=== PATIENT | male | born 1975 | race African-American/Black ===

== ENCOUNTER 2018-07-23 12:47 | Observation (INO) ==
[2018-07-23 15:23] LABS: Basophils % 0.2 % (0.0-0.8); Eosinophils # 4.2 10*3/uL (0.0-0.87); Eosinophils % 33.2 % (0.00-10.9); Hemoglobin 11.6 GM/DL (14.0-18.0); Immature Granulocytes % 0.9 %; Immature Granulocytes Absolute 0.11 #; Lymphocytes # 0.9 10*3/uL (1.4-4.0); Lymphocytes % 7.1 % (21.2-54.2); Mean Corpuscular HGB Conc 30.5 GM/DL (32-36); Mean Corpuscular Volume 90.3 FL (87-102); Mean Platelet Volume 10.4 FL (9.6-12.0); Monocytes % 7.8 % (1.7-12.7); Neutrophils % 50.8 % (38.7-73.9); Platelet Count 208 T/CUMM (130-400); Red Blood Count 4.21 MC/CUMM (3.8-5.5); Red Cell Distribution Width 13.4 % (9.3-17.3); White Blood Count 12.5 T/CUMM (4-12)
[2018-07-23 15:46] LABS: Albumin 3.5 G/DL (3.4-5.0); Bilirubin,Total 0.5 MG/DL (0.2-1.0); Calcium 10.3 MG/DL (8.5-10.1); Osmolality,Calculated 269.8 MOS/KG (273-304); Total Protein 7.6 G/DL (6.4-8.3)
[2018-07-23 15:52] LABS: Eosinophils 10 % (0-10); Lymphocytes 3 % (20-55); Segmented Neutrophils 79 % (50-85); Total Cells Counted 100
[2018-07-23 15:53] LABS: Platelet Estimate Normal
[2018-07-23] MEDS ORDERED: SODIUM CHLORIDE 0.9% 2,100 ML IV ONE (16:58)
[2018-07-23] MEDS ORDERED: guaiFENesin/DM ER 600-30 MG TABLET PO PRN (16:59)
[2018-07-23] MEDS ORDERED: ACETAMINOPHEN 325 MG TABLET PO PRN (16:59)
[2018-07-23] MEDS ORDERED: ZALEPLON 5 MG CAPSULE PO PRN (16:59)
[2018-07-23] MEDS ORDERED: NICOTINE 21 MG/24 HR PATCH TRANSDERM PRN (16:59)
[2018-07-23] MEDS ORDERED: ONDANSETRON 4 MG/2 ML VIAL IV PRN (16:59)
[2018-07-23] MEDS ORDERED: SODIUM CHLORIDE 0.9% 1,000 ML IV SCH (17:00)
[2018-07-23] MEDS ORDERED: cefTRIAXone 1,000 MG in SYRINGE 1 EACH IV SCH (17:00)
[2018-07-23] MEDS ORDERED: cefTRIAXone 1,000 MG VIAL ONE (17:05)
[2018-07-23] MEDS: AZITHROMYCIN 250 MG TABLET PO SCH (17:13)
[2018-07-23] MEDS: DOCUSATE SODIUM 100 MG CAPSULE PO SCH (20:28)
[2018-07-23] MEDS ORDERED: ALBUTEROL/IPRATROPIUM 3 ML NEB RESP TX PRN (20:42)
[2018-07-23] MEDS ORDERED: MYCOPHENOLATE 180 MG TABLET PO SCH (21:00)
[2018-07-23] MEDS: FERROUS SULFATE 325 MG TABLET PO SCH (22:23)
[2018-07-23] MEDS: MYCOPHENOLIC ACID PO SCH (22:24)
[2018-07-23] MEDS: TACROLIMUS PO SCH (22:24)
[2018-07-24 04:50] LABS: Basophils % 0.2 % (0.0-0.8); Eosinophils # 0.1 10*3/uL (0.0-0.87); Eosinophils % 0.7 % (0.00-10.9); Hematocrit 34.6 VOL% (42.0-52.0); Hemoglobin 10.7 GM/DL (14.0-18.0); Immature Granulocytes % 0.6 %; Immature Granulocytes Absolute 0.05 #; Lymphocytes # 0.4 10*3/uL (1.4-4.0); Lymphocytes % 5.3 % (21.2-54.2); Mean Corpuscular HGB Conc 30.9 GM/DL (32-36); Mean Corpuscular Volume 88.7 FL (87-102); Mean Platelet Volume 10.6 FL (9.6-12.0); Monocytes % 11.7 % (1.7-12.7); Neutrophils % 81.5 % (38.7-73.9); Platelet Count 211 T/CUMM (130-400); Red Cell Distribution Width 13.4 % (9.3-17.3); White Blood Count 8.1 T/CUMM (4-12)
[2018-07-24 05:28] LABS: Band Neutrophils 2 % (0-10); Lymphocytes 6 % (20-55); Segmented Neutrophils 79 % (50-85); Total Cells Counted 100
[2018-07-24 05:29] LABS: Anisocytosis 1+; Microcytosis 1+; Platelet Estimate Normal
[2018-07-24 05:37] LABS: Albumin 3.1 G/DL (3.4-5.0); Bilirubin,Total 0.6 MG/DL (0.2-1.0); Calcium 9.6 MG/DL (8.5-10.1); Osmolality,Calculated 279.7 MOS/KG (273-304); Risk Ratio 3.73; Thyroid Stimulating Hormone 0.879 uIU/ml (0.358-3.74); Total Protein 6.8 G/DL (6.4-8.3); VLDL CHOLESTEROL 17.4 MG/DL
[2018-07-24 08:00] VITALS: BP 136/84
[2018-07-24] MEDS ORDERED: predniSONE 10 MG TABLET PO SCH (08:00)
[2018-07-24] MEDS: AZITHROMYCIN 250 MG TABLET PO SCH (08:13)
[2018-07-24] MEDS: FERROUS SULFATE 325 MG TABLET PO SCH (08:13)
[2018-07-24] MEDS: DOCUSATE SODIUM 100 MG CAPSULE PO SCH (08:13)
[2018-07-24] MEDS: TACROLIMUS PO SCH (08:13)
[2018-07-24] MEDS: MYCOPHENOLIC ACID PO SCH (08:14)
[2018-07-24] MEDS ORDERED: PANTOPRAZOLE 40 MG TABLET PO SCH (09:00)
[2018-07-24] MEDS ORDERED: FOLIC ACID 1 MG TABLET PO SCH (09:00)
[2018-07-24 11:06] LABS: Apearance,Urine CLEAR (Clear); Bilirubin,Urine Negative (Negative); Blood, Urine Small mg/dL (Negative); Glucose,Urine (UA) Negative (Negative); Ketones,Urine Negative (Negative); Nitrite,Urine Negative (Negative); Protein,Urine Negative; RBC,Urine <1 /HPF (0-4); Urine Color Straw (Yellow); Urine Urobilinogen < 2.0 EU/DL (0.2-1.0); WBC,Urine <1 /HPF (0-6)
== END 2018-07-24 11:49 | disposition home or self-care (01) ==
LOC: N.EDINP 12:47 → N.ED 12:47 → N.EDINP 18:09 → N.5E 18:09
PROVIDERS: ADMIT Internal Medicine; ATTEND Internal Medicine